=== PATIENT | female | born 1960 | race Two or more races ===

== ENCOUNTER 2019-02-13 01:19 | Inpatient (IN) | payer OTHER ==
[~2019-02-13] VITALS: Ht 170.2 cm; Wt 74.8 kg
--- NOTE | 2019-02-13 01:35 | NUR ---
HOLLY FROM HOME. AAOX4. BREATHING EVEN AND UNLABORED. C/O R HIP PAIN S/P FALLING FROM STAIRS AT HOME COUPLE HOURS AGO. PT RATES HER PAIN AT 10/10. NOTED EXTERNAL ROTATION ON R LOWER EXT. TO ER BED 7. AWAITING MD FOR ORDERS
[2019-02-13] MEDS ORDERED: MORPHINE SULFATE INJ 2 MG/ML DISP.SYRIN IV ONE (02:00)
[2019-02-13] MEDS ORDERED: MORPHINE SULFATE INJ 4 MG/ML DISP.SYRIN ONE (02:05)
[2019-02-13 02:23] LABS: BASOPHILS # (AUTO) 0.1 /CMM (0.0-0.2); BASOPHILS % (AUTO) 0.3 % (0.0-2.0); EOSINOPHILS % (AUTO) 0.5 % (0.0-6.0); HEMATOCRIT 40 % (33-45); HEMOGLOBIN 13.3 g/dL (11.5-14.8); LYMPHOCYTES # (AUTO) 0.9 /CMM (0.8-4.8); LYMPHOCYTES % (AUTO) 4.3 % (20.0-44.0); MEAN CORPUSCULAR HGB CONC 33 g/dl (31.0-36.0); MEAN CORPUSCULAR VOLUME 92 fL (82-100); MONOCYTES # (AUTO) 1.3 /CMM (0.1-1.30); MONOCYTES % (AUTO) 5.9 % (2.0-12.0); NEUTROPHILS # (AUTO) 19.7 /CMM (1.8-8.9); PLATELET COUNT (AUTO) 367 /CMM (150-450); RED BLOOD CELL COUNT(AUTO) 4.36 MIL/uL (4.0-5.2); WHITE BLOOD COUNT (AUTO) 22.1 K/uL (4.3-11.0)
[2019-02-13 02:29] LABS: CALCIUM, SERUM 8.9 mg/dL (8.5-10.1); CREATININE 0.8 mg/dL (0.6-1.3); POTASSIUM 3.7 mmol/L (3.5-5.1)
--- NOTE | 2019-02-13 02:57 | NUR ---
LEFT CONTACT INFO FOR INFORMATION OF 'S CONDITION. LILY .
--- NOTE | 2019-02-13 03:17 | NUR ---
Dr. Seaman, Orthopaedic Sx paged.
--- NOTE | 2019-02-13 03:19 | NUR ---
[facility] 204-2 Dx: rt hip fracture
--- NOTE | 2019-02-13 03:42 | NUR ---
REPORT GIVEN TO ELANA MARROQUIN FOR ETELVINA
--- NOTE | 2019-02-13 03:56 | NUR ---
PAGED EPIC FOR NURSE REVIEWER DOCTOR.
[2019-02-13 04:34] VITALS: BP 122/81
--- NOTE | 2019-02-13 04:35 | NUR ---
MS RN OPENING NOTES: RECEIVED PT ON ROOM AIR AND IS TOLERATING WELL. NO SOB NOTED. PT VERBALIZING THAT HER PAIN IS OK FOR NOW BUT WHEN SHE IS MOVED OR CHANGING POSITIONS, IT IS VERY PAINFUL. PT DOES NOT WANT TO BE CHANGED OR MOVED AT THIS TIME UNTIL MEDICATED. FOR NOW, INFORMED PT THAT SHE IS NPO SHE MAY BE REQUIRING SURGERY. PT UNDERSTAND VERBALIZED. PT HAS IV ON L AC #20G AND IS PATENT AND INTACT. CURRENTLY H/L. BED KEPT IN LOW, LOCKED POSITION, AND SIDE RAILS X 2UP. WILL CONTINUE TO MONITOR PT.
--- NOTE | 2019-02-13 04:40 | NUR ---
PT TRANSPORTED TO UNIT WITH EMT AND RN AT BEDSIDE. PT IS STABLE CONDITION FOR TRANSPORT. NAD NOTED DURING TRANSPORT TO UNIT
[2019-02-13] MEDS: MORPHINE SULFATE INJ 2 MG/ML DISP.SYRIN IV PRN ×3 (05:17→20:46)
--- NOTE | 2019-02-13 05:23 | NUR ---
MS RN NOTES: PT IN EXCRUCIATING 10/10 R HIP PAIN. PT WAS ADMINISTERED MORPHINE 2MG IV. WILL CONTINUE TO MONITOR. PT STILL REFUSING TO BE MOVED OR CHANGED INTO GOWN UNTIL PAIN SUBSIDES.
[2019-02-13] MEDS ORDERED: ZOLPIDEM TARTRATE 5 MG TABLET PO PRN (05:30)
[2019-02-13] MEDS ORDERED: MAG HYDROX/AL HYDROX/SIMETH 30 ML UDC PO PRN (05:30)
[2019-02-13] MEDS ORDERED: ONDANSETRON HCL/PF 4 MG/2 ML VIAL IVP PRN (05:30)
[2019-02-13] MEDS ORDERED: ACETAMINOPHEN 325 MG TABLET PO PRN (05:30)
[2019-02-13] MEDS ORDERED: Z GUARD REMEDY 2 OZ OINT TP PRN (05:30)
[2019-02-13] MEDS ORDERED: MAGNESIUM HYDROXIDE 30 ML UDC PO PRN (05:30)
[2019-02-13 06:03] VITALS: BP 132/79
[2019-02-13] MEDS: HYDROCODONE/APAP 5/325MG 1 EACH TABLET PO PRN ×3 (06:05→23:46)
--- NOTE | 2019-02-13 06:06 | NUR ---
MS RN NOTES: PT STILL IN EXCRUCIATING PAIN AND DOES NOT WANT TO BE MOVED OR CHANGED JUST YET THE PAIN IS UNBEARABLE 04/14. PT WAS ADMINISTERED NORCO 5 PO. WILL OFFER TO CHANGE AND REPOSITION AT A LATER TIME WHEN PAIN SUBSIDES.
--- NOTE | 2019-02-13 07:18 | NUR ---
MS RN CLOSING NOTES: ALL NEEDS WERE ATTENDED AND ANTICIPATED FOR. PT KEPT CLEAN, DRY, AND COMFORTABLE. IV ON LAC REMAINS INTACT. PT NPO FOR NOW AT THIS TIME. PAIN IS DECREASING. LEFT LEG ELEVATED WITH PILLOW. BED KEPT IN LOW, LOCKED POSITION, AND SIDE RAILS X 2UP. BED ALARM ACTIVATED. ENDORSED TO AM NURSE FOR ETELVINA.
--- NOTE | 2019-02-13 07:57 | NUR ---
MS RN NOTES PATIENT RECEIVED RESTING INSIDE ROOM. AWAKE, ALERT AND ORIENTED, VERBALLY RESPONSIVE AND RESPONDS TO VERBAL AND TACTILE STIMULI. NO CHANGES IN LOC NOTED. NO ACUTE DISTRESS. PATIENT CALM AND RELAXED. ON NPO EXCEPT MEDS, PATIENT AWARE AND VERBALIZED UNDERSTANDING. AWAITING ORTHO CONSULT. WILL CONTINUE TO MONITOR. BED LOCKED AND IN LOW POSITION. BILATERAL UPPER SIDE RAILS UP AND LOCKED. CALL LIGHT WITHIN EASY REACH
[2019-02-13 08:00] VITALS: BP 123/75
[2019-02-13 16:00] VITALS: BP 133/76
--- NOTE | 2019-02-13 19:18 | NUR ---
MS RN NOTES PATIENT RESTING INSIDE ROOM. NO ACUTE DISTRESS. CONTINUE NWB ON RLE. PATIENT KEPT CLEAN, DRY AND COMFORTABLE. PATIENT TO BE NPO AFTER MIDNIGHT, PATIENT AWARE AND VERBALIZED UNDERSTANDING. ENDORSED TO INCOMING SHIFT FOR ETELVINA. BED LOCKED AND IN LOW POSITION. BILATERAL UPPER SIDE RAILS UP AND LOCKED. CALL LIGHT WITHIN EASY REACH
--- NOTE | 2019-02-13 19:36 | NUR ---
MS RN OPENING NOTES: RECEIVED PT ON ROOM AIR AND IS TOLERATING WELL. NO SOB NOTED. PT COMPLAINING OF SOME PAIN BUT TOLERATING AT THIS TIME. IV REMAINS INTACT. CURRENTLY H/L. BED KEPT IN LOW, LOCKED POSITION, AND SIDE RAILS X 2UP. CALL LIGHT WITHIN REACH. WILL CONTINUE TO MONITOR PT.
[2019-02-13 20:00] VITALS: BP 126/75
--- NOTE | 2019-02-13 20:50 | NUR ---
MS RN NOTES: PT COMPLAINING OF 10/10 R HIP PAIN. PT WAS ADMINISTERED MORPHINE 2MG IV. WILL CONTINUE TO MONITOR.
--- NOTE | 2019-02-13 23:00 | NUR ---
RN NOTES: URINE SPECIMEN COLLECTED AND PLACED IN REFRIGERATOR.
[2019-02-14] VITALS (8 sets, daily range): BP systolic 121–153; BP diastolic 73–90
[2019-02-14 01:37] LABS: APPEARANCE,URINE CLEAR (CLEAR); BILIRUBIN,URINE NEGATIVE (NEGATIVE); BLOOD, URINE NEGATIVE Ery/uL (NEGATIVE); COLOR,URINE YELLOW (YELLOW); KETONES,URINE NEGATIVE (NEGATIVE); LEUKOCYTE ESTERASE ,URINE NEGATIVE (NEGATIVE); NITRITE, URINE NEGATIVE (NEGATIVE); PROTEIN,URINE NEGATIVE (NEGATIVE); UGLUCOSE NEGATIVE (NEGATIVE); UROBILINOGEN,URINE 0.2 EU/dL (0.2)
--- NOTE | 2019-02-14 04:11 | NUR ---
MS RN NOTES: ASSISTED PT TO USE BEDPAN. SUGGESTED SHIELDS CATH BUT PT DOES NOT WANT IT NOW. PT MORE CONCERNED ABOUT GETTING IT FOR AFTER SURGERY. DEFER FOR NOW.
[2019-02-14] MEDS: MORPHINE SULFATE INJ 2 MG/ML DISP.SYRIN IV PRN ×2 (05:48→10:10)
--- NOTE | 2019-02-14 05:51 | NUR ---
MS RN NOTES: PT COMPLAINING OF 8/10 R HIP , LEG PAIN. PT WAS ADMINISTERED MORPHINE 2MG IV. WILL CONTINUE TO MONITOR.
--- NOTE | 2019-02-14 06:18 | NUR ---
MS RN CLOSING NOTES: ALL NEEDS WERE ATTENDED AND ANTICIPATED FOR. PT RESTING IN BED COMFORTABLY AT THIS TIME AND IS ANTICIPATING TO GO FOR SX. IV REMAINS INTACT. CURRENTLY H/L. PT HAS BEEN NPO SINCE MIDNIGHT. R LEG ELEVATED WITH A PILLOW. BED KEPT IN LOW, LOCKED POSITION, AND SIDE RAILS X 2UP. WILL ENDORSE TO AM NURSE FOR ETELVINA.
[2019-02-14 06:52] LABS: BASOPHILS % (AUTO) 0.2 % (0.0-2.0); EOSINOPHILS % (AUTO) 1.7 % (0.0-6.0); HEMATOCRIT 37 % (33-45); HEMOGLOBIN 12.2 g/dL (11.5-14.8); LYMPHOCYTES # (AUTO) 2.2 /CMM (0.8-4.8); LYMPHOCYTES % (AUTO) 22.7 % (20.0-44.0); MEAN CORPUSCULAR HGB CONC 33 g/dl (31.0-36.0); MEAN CORPUSCULAR VOLUME 91 fL (82-100); MONOCYTES # (AUTO) 1.1 /CMM (0.1-1.30); MONOCYTES % (AUTO) 11.1 % (2.0-12.0); NEUTROPHILS # (AUTO) 6.2 /CMM (1.8-8.9); NEUTROPHILS % (AUTO) 64.3 % (43.0-81.0); PLATELET COUNT (AUTO) 312 /CMM (150-450); RED BLOOD CELL COUNT(AUTO) 4.02 MIL/uL (4.0-5.2); WHITE BLOOD COUNT (AUTO) 9.7 K/uL (4.3-11.0)
[2019-02-14 07:02] LABS: CALCIUM, SERUM 8.4 mg/dL (8.5-10.1); CREATININE 0.6 mg/dL (0.6-1.3); MAGNESIUM 2.3 mg/dL (1.8-2.4); PHOSPHORUS 3.3 mg/dL (2.5-4.9)
--- NOTE | 2019-02-14 07:30 | NUR ---
MS RN OPENING NOTE RECEIVED PT IN BED, ALERT AND ORIENTED X4, DENIES CHEST PAIN, SOB, N/V. BREATHING IS EVEN AND UNLABORED ON ROOM AIR AIR. NO ACUTE DISTRESS NOTED AT THIS TIME. LEFT AC #20G IV IS SALINE LOCKED WITHOUT REDNESS OR SWELLING. NEUROVASCULAR STATUS INTACT, PT DENIES TINGLING, NUMBNESS, ABLE TO MOVE FOOT AND WIGGLE TOES, REPORTS PAIN 3/10 AND TOLERABLE AT THIS TIME. PT IS SCHEDULED FOR RIGHT HIP SX THIS MORNING WITH . NPO STATUS MAINTAINED. ALL NEEDS ATTENDED TO. BED IS LOCKED AND IN LOWEST POSITION, SIDE RAILS UP X2, BED ALARM ON, CALL LIGHT AND POSSESSIONS WITHIN REACH.
--- NOTE | 2019-02-14 08:00 | NUR ---
MS RN NOTE INCENTIVE SPIROMETER PLACED AT BEDSIDE, EDUCATION PROVIDED VIA TEACH BACK METHOD PT DEMONSTRATED CORRECT TECHNIQUE AND VERBALIZED UNDERSTANDING.
--- NOTE | 2019-02-14 11:27 | NUR ---
MS RN NOTE PT OFF UNIT FOR SX. CONSENTS SIGNED AND CHECKLIST PLACED IN CHART. AT THE BEDSIDE
[2019-02-14] MEDS ORDERED: HYDROMORPHONE INJ 2 MG/ML DISP.SYRIN ONE ×2 (11:51→11:53)
[2019-02-14] MEDS ORDERED: MIDAZOLAM HCL 2 MG/2ML VIAL ONE ×2 (11:52→11:53)
[2019-02-14] MEDS ORDERED: BACITRACIN 50000 UNITS/VIAL ONE (12:11)
[2019-02-14] MEDS ORDERED: BUPIVACAINE 0.5 % PF 150 MG/30 ML VIAL ONE (12:11)
--- NOTE | 2019-02-14 14:45 | NUR ---
MS RN NOTE PT BACK FROM RIGHT UP SX WITH , DRESSING IS CLEAN DRY AND INTACT. SHIELDS CATHETER NOTED TO BE DRAINING CLEAR, YELLOW URINE. VS MONITORING INITIATED PER PROTOCOL. NEUROVASCULAR STATUS INTACT, PT STATES SHE HAS NO PAIN AT THIS TIME. SCDS ORDERED FROM [facility]. AT THE BEDSIDE. POST OP ORDERS FAXED BY PACU NURSE HILARY TO PHARMACY. ORDERS REVIEWED.
--- NOTE | 2019-02-14 15:06 | NUR ---
MS RN NOTE PER ALAN JONES FOR [facility], PT DOES NOT NEED ABDUCTION PILLOW IN PLACE.
--- NOTE | 2019-02-14 18:07 | NUR ---
MS RN CLOSING NOTE PT IN BED, ALERT AND ORIENTED X4, DENIES CHEST PAIN, SOB, N/V. BREATHING IS EVEN AND UNLABORED ON ROOM AIR AIR. NO ACUTE DISTRESS NOTED AT THIS TIME. LEFT AC #20G IV IS SALINE LOCKED WITHOUT REDNESS OR SWELLING. SHIELDS CATHETER NOTED TO BE DRAINING CLEAR, YELLOW URINE. NEUROVASCULAR STATUS INTACT, RIGHT HIP DRESSING IS CLEAN, DRY AND INTACT. SCDS IN PLACE AND INCENTIVE SPIROMETER AT THE BEDSIDE. ADLS PROVIDED. ALL NEEDS ATTENDED TO. BED IS LOCKED AND IN LOWEST POSITION, SIDE RAILS UP X2, BED ALARM ON, CALL LIGHT AND POSSESSIONS WITHIN REACH. WILL ENDORSE TO BUS GREASER NURSE FOR CONTINUITY OF CARE.
--- NOTE | 2019-02-14 19:05 | NUR ---
MS RN OPENING NOTES Received patient awake on Youngblood's position on bed, watching TV. On RA, no SOB/respiratory distress noted. With patent peripheral IV line LAC #20, SL. No signs of discomfort noted at this time. On fall precautions, call light within reach. Will continue to monitor accordingly.
[2019-02-14] MEDS: ANCEF 1 GM/50 ML D5W IV SCH ×2 (19:59)
[2019-02-14] MEDS: MORPHINE SULFATE INJ 4 MG/ML DISP.SYRIN IV PRN (21:56)
[2019-02-15] MEDS: ANCEF 1 GM/50 ML D5W IV SCH ×4 (03:13→12:00)
[2019-02-15] MEDS: MORPHINE SULFATE INJ 4 MG/ML DISP.SYRIN IV PRN ×2 (03:18→21:30)
[2019-02-15 06:38] LABS: BASOPHILS % (AUTO) 0.1 % (0.0-2.0); EOSINOPHILS % (AUTO) 0.6 % (0.0-6.0); HEMATOCRIT 32 % (33-45); HEMOGLOBIN 10.9 g/dL (11.5-14.8); LYMPHOCYTES # (AUTO) 2.2 /CMM (0.8-4.8); LYMPHOCYTES % (AUTO) 21.2 % (20.0-44.0); MEAN CORPUSCULAR HGB CONC 34 g/dl (31.0-36.0); MEAN CORPUSCULAR VOLUME 91 fL (82-100); MONOCYTES # (AUTO) 1.4 /CMM (0.1-1.30); MONOCYTES % (AUTO) 13.4 % (2.0-12.0); NEUTROPHILS # (AUTO) 6.8 /CMM (1.8-8.9); NEUTROPHILS % (AUTO) 64.7 % (43.0-81.0); PLATELET COUNT (AUTO) 287 /CMM (150-450); RED BLOOD CELL COUNT(AUTO) 3.51 MIL/uL (4.0-5.2); WHITE BLOOD COUNT (AUTO) 10.5 K/uL (4.3-11.0)
--- NOTE | 2019-02-15 06:38 | NUR ---
MS RN CLOSING NOTES Patient asleep on on bed at this time. On RA, no SOB/respiratory distress noted. All nursing needs attended. Kept clean, dry and comfortable. No new complaints made. Afebrile the whole shift. All due meds given as ordered, no ASE noted. On fall precautions, call light within easy reach. Endorsed to the next shift.
[2019-02-15 06:58] LABS: CREATININE 0.6 mg/dL (0.6-1.3); MAGNESIUM 2.1 mg/dL (1.8-2.4); PHOSPHORUS 3.1 mg/dL (2.5-4.9)
--- NOTE | 2019-02-15 07:30 | NUR ---
MS/RN Patient received [facility]. A/O X4, vital signs within normal range. Dressing to right hip clean and dry. Safety measures in place, will continue to monitor and ensure safety.
[2019-02-15 08:00] VITALS: BP 120/68
[2019-02-15] MEDS: ENOXAPARIN SODIUM 40 MG/0.4 ML DISP.SYRIN SQ SCH (08:13)
[2019-02-15] MEDS: HYDROCODONE/APAP 5/325MG 1 EACH TABLET PO PRN ×2 (08:14→14:17)
--- NOTE | 2019-02-15 08:15 | NUR ---
MS/hvac manager Morning medications administered as ordered with one norco 5/325mg for pain scale 6/10. Will monitor effectiveness.
--- NOTE | 2019-02-15 10:05 | NUR ---
MS/RN Labs Morning labs reviewed: -H&H . -Na 135
--- NOTE | 2019-02-15 12:00 | NUR ---
MS/RN S/B PT Seen by PT - able to get out of bed and stand at edge of bed.
--- NOTE | 2019-02-15 14:00 | NUR ---
MS/RN S/B Dr Oates Seen by Dr Oates - labs ordered for tomorrow. Discharge planning for [facility].
--- NOTE | 2019-02-15 15:00 | NUR ---
MS/concrete pavement installer planning Seen by case management, insurance to be verified to determine if patient qualifies for [facility].
[2019-02-15 16:00] VITALS: BP 113/67
--- NOTE | 2019-02-15 18:40 | NUR ---
MS/RN End note Patient remains in stable condition, all needs addressed. Current plan level 5/10, refusing medication at this time, requesting that Dilaudid be given prior to sleeping. Will inform night RN.
--- NOTE | 2019-02-15 19:00 | NUR ---
RN MS OPENING NOTES RECEIVED PATIENT IN BED AWAKE ALERT AND ORIENTED X4, RESPIRATIONS EVEN AND UNLABORED WITH EQUAL RISE AND FALL OF CHEST, DENIES ANY PAIN AT THIS TIME, RIGHT HIP SURGICAL SITE DRESSINGS REMAIN C/D/I. SCD'S IN PLACE, SHIELDS CATHETER INTACT AND DRAINING NOTED URINE YELLOW AND CLEAR, IV SITE TO LEFT AC #20 G SL, INTACT AND PATENT, NO REDNESS, NO INFILTRATION PRESENT, ORIENTED TO CALL LIGHT AND STAFF AND KEPT WITHIN REACH, SAFETY PRECAUTIONS IN PLACE, LOW BED AND LOCKED, FLUIDS OFFERED , REPOSITIONING OFFERED, ALL NEEDS ATTENDED AT THIS TIME, WILL CONTINUE TO ADDRESS NEEDS THROUGHOUT SHIFT.
[2019-02-15 20:00] VITALS: BP 120/73
[2019-02-15 20:37] VITALS: BP 120/73
--- NOTE | 2019-02-15 21:30 | NUR ---
RN MS NOTES PATIENT COMPLAINT OF PAIN TO RIGHT HIP AREA 6-7/10 ACHING, THROBBING PAIN. REQUESTING FOR PAIN MEDICATION MORPHINE. VS WNL 120/73,93,19,98.9,96%RA. PRN MORPHINE GIVEN ORDERED. WILL CONTINUE TO MONITOR FOR EFFECTIVENESS.
[2019-02-16] MEDS: HYDROCODONE/APAP 5/325MG 1 EACH TABLET PO PRN ×3 (03:53→15:37)
--- NOTE | 2019-02-16 03:55 | NUR ---
RN MS NOTES PATIENT COMPLAIN OF PAIN TO RIGHT HIP AREA, 02/12. ACHING REQUESTING FOR PAIN MEDICATION. PER PATIENT WILL LIKE TO TAKE NORCO AT THIS TIME. VS WNL NORCO PRN ORDERED GIVEN WILL CONTINUE TO MONITOR FOR EFFECTIVENESS.ALL NEEDS ATTENDED.
--- NOTE | 2019-02-16 06:11 | NUR ---
RN MS NOTES PATIENT STATES HAS NOT HAD BM X 2 DAYS, REQUESTING FOR STOOL SOFTENER AT THIS TIME, M.O.M OFFERED AT HS, PER PATIENT REQUEST WANTED AT THIS TIME IN AM, PRUNE JUICE ALSO OFFERED AND PROVIDED, FLUIDS ENCOURAGED AND GIVEN.
--- NOTE | 2019-02-16 06:47 | NUR ---
RN MS CLOSING NOTES PATIENT IN BED AWAKE ALERT AND ORIENTED X4, RESPIRATIONS EVEN AND UNLABORED WITH EQUAL RISE AND FALL OF CHEST, DENIES ANY PAIN AT THIS TIME, RIGHT HIP SURGICAL SITE DRESSINGS REMAIN C/D/I. SCD'S IN PLACE, SHIELDS CATHETER INTACT AND DRAINING NOTED URINE YELLOW AND CLEAR, IV SITE TO LEFT AC #20 G SL, INTACT AND PATENT, NO REDNESS, NO INFILTRATION PRESENT, CALL LIGHT KEPT WITHIN REACH, SAFETY PRECAUTIONS IN PLACE, LOW BED AND LOCKED, FLUIDS OFFERED , REPOSITIONING OFFERED, ALL NEEDS ATTENDED AT THIS TIME, WILL CONTINUE TO ADDRESS NEEDS AND ENDORSE TO NEXT SHIFT, NO CHANGES THROUGHOUT SHIFT, PAIN MEDICATION WAS EFFECTIVE. NO BANDAIDS IN PLACE TO SCABS ON HANDS SCABS DRY, BANDAIDS OFFERED, PER PATIENT "ITS DONE" NOT NEEDED.
--- NOTE | 2019-02-16 07:37 | NUR ---
RN OPENING NOTE PT WAS RECEIVED IN BED AT LOWEST AND LOCKED POSITION WITH SIDE RAILS UP X2, A/O X4, BREATHING EVEN AND UNLABORED ON RA WITH NO CURRENT COMPLAINTS OF ANY DISTRESS OR PAIN, IV IS PATENT AND INTACT, PLAN FOR DRESSINGS TO BE CHANGED TODAY BY ORTHO, NOTED TO HAVE SHIELDS IN PLACE, PT FOLLOW UP PLANNED, D/C PLANNING TO ACUTE REHAB VS HOME HEALTH, SAFETY PRECAUTIONS IN PLACE, CALL LIGHT WITHIN REACH, WILL MONITOR ACCORDINGLY
[2019-02-16] MEDS: ENOXAPARIN SODIUM 40 MG/0.4 ML DISP.SYRIN SQ SCH (08:02)
[2019-02-16 09:10] VITALS: BP 119/69
--- NOTE | 2019-02-16 09:10 | NUR ---
RN NOTE PATIENT HAD 1 BM AT THIS TIME
[2019-02-16] MEDS ORDERED: CEPHALEXIN MONOHYDRATE 250 MG CAPSULE PO ONE (11:30)
[2019-02-16] MEDS ORDERED: MAGN400O6 PO (13:52)
[2019-02-16] MEDS ORDERED: ACET325T53 PO (13:52)
[2019-02-16] MEDS ORDERED: ONDA4TAB5 PO (13:52)
[2019-02-16] MEDS ORDERED: ZOLP5TAB2 PO (13:52)
[2019-02-16] MEDS ORDERED: ENOX40DI SQ (13:52)
[2019-02-16] MEDS ORDERED: HYDR-3972 PO (13:52)
--- NOTE | 2019-02-16 14:43 | NUR ---
RN NOTE REPORT GIVEN TO PARVEZ AT [facility]
--- NOTE | 2019-02-16 16:00 | NUR ---
DISCHARGE NOTE PT WAS D/C AT THIS TIME IN MEDICALLY STABLE CONDITION TO [facility], [place], [facility] AT THIS TIME IN MEDICALLY STABLE CONDITION, IV AND ID BAND WERE REMOVED. EXITCARE AND D/C PAPERWORK WERE DISCUSSED, SIGNED AND HANDED TO THE PATIENT. ALL BELONGINGS WERE TAKEN WELL WITH BELONGING LIST SIGNED. PHOTOS OF SKIN WERE TAKEN AND DOCUMENTED IN THE CHART. REPORT WAS GIVEN TO PARVEZ AT [facility], [place], [facility]. ALL NEEDS WERE ATTENDED TO DURING HER STAY. PT LEFT WITH EMT CREW AT THIS TIME.
== END 2019-02-16 16:00 | DRG 481 ==
LOC: ER 01:21 → MEDSG2 03:19
PROVIDERS: ADMIT Nurse Practitioner Acute Care; ATTEND Nurse Practitioner Acute Care
PROC: 0QS606Z Reposition Right Upper Femur with Intramedullary Internal Fixation Device, Open Approach (ICD-10-PCS; principal; 2019-02-14)
DX: S72.141A Displaced intertrochanteric fracture of right femur, initial encounter for closed fracture (principal); J98.11 Atelectasis; W10.9XXA Fall (on) (from) unspecified stairs and steps, initial encounter; Y92.89 Other specified places as the place of occurrence of the external cause; D72.829 Elevated white blood cell count, unspecified; F43.9 Reaction to severe stress, unspecified
CPT/HCPCS: 36415; 71045-TC; 73130-TC; 73501; 73502; 80048-TC; 80061-TC; 81000-TC; 83735-TC; 84100-TC; 85025-TC; 85730-TC; 86850-TC; 87081-TC; 93307-TC; 97110-TC; 97112-TC; 97116-TC; 97530-TC; G0378; J0690; J1100; J1170; J1200; J1650; J2250; J2270; J2405; J2704; J3490; J7050; J7060